=== PATIENT | female | born 1990 | race Caucasian/White ===

== ENCOUNTER 2020-06-22 08:05 | Outpatient (CLI) | payer OTHER, SELFPAY | END 2020-06-22 08:06 | LOC: ANHCOVIDVC 08:06 | DX: Z23 Encounter for immunization (principal) | CPT/HCPCS: 0001A; 91300 ==

== ENCOUNTER 2020-07-12 08:35 | Outpatient (CLI) | payer OTHER, SELFPAY | END 2020-07-12 08:36 | disposition home or self-care (01) | LOC: ANHCOVIDVC 08:35 | DX: Z23 Encounter for immunization (principal) | CPT/HCPCS: 0002A; 91300 ==

== ENCOUNTER 2021-05-09 08:13 | Outpatient (RCR) | payer OTHER, SELFPAY ==
[2021-04-28 11:31] VITALS: PULSE 80
--- NOTE | ~2021-05-09 | US_ITS ---
EXAMINATION: US OB follow up w BPP, US umbilical doppler EXAM DATE: 04/28/2021 10:49 INDICATION: BPP, EFW with growth percentile, WARREN- Gest DM 3rd trimester. TECHNIQUE: Pelvic obstetrical transabdominal sonogram was performed by a technologist. There are mu ltiple grayscale and Doppler images available for interpretation. . No prior study of this for comparison FINDINGS: There is a single fetus identified in vertex presentation with a heart rate of 136 beats pe r minute. The placenta is located in the posterior position. There is no sonographic evidence of ret roplacental hemorrhage identified. The amniotic fluid index is 15.4 centimeters, which is normal. BIOMETRIC DATA: Biparietal diameter (BPD): 8.7 cm --------------> 35 weeks 0 days. Head circumference (HC): 31.7 cm ---------------> 35 weeks 4 days. Abdominal circumference (AC): 30.7 cm ---------> 34 weeks 5 days. Femur length (FL): 6.2 cm ------------------------> 32 weeks 1 day. These measurements are concordant. HC/AC ratio is 1.03 (The 5th -- 95th percentile range is 0.94-1.11. Estimated weight is 2352 g +/- 353 g. This is the 76th percentile when the currently reported clinical gestation age 33 weeks 0 days, clinical estimated date of delivery (LUIS-OPE) 06/16 is used. F etal estimated gestational age based on measurements from this exam is 34 weeks 3 days, with an estim ated date of delivery (LUIS-AUA) 06/06/2021. BIOPHYSICAL PROFILE (performed by the technologist) breathing (30 sec sustained breathing in 30 minutes): 2 out of 2 movement (3 gross body movements in 30 minutes): 2 out of 2 tone (one episode of yejmgmz-[id number]-[id number] limb movement): 2 out of 2 Amniotic fluid pocket (2 cm): 2 out of 2 Total score: 8 out of 8 UMBILICAL ARTERY DOPPLER Systolic/diastolic ratios obtained as follows: Near baby: 3.6, 3.4 Mid aspect: 3.2, 3.1 Near Placenta: 2.4, 2.2 (The 5th -- 95th percentile range is 2.1-3.7). IMPRESSION: 1. Single fetus with heart rate of 136 bpm, 76th percentile using 33 weeks 0 days gestation age. 2. Normal biophysical profile score of 8 out of 8. 3. Normal umbilical artery systolic/diastolic ratios. Reviewed, dictated and finalized at location B. IRATORY CARE ASSISTANT IMPRESSION: 1. Single fetus with heart rate of 136 bpm, 76th percentile using 33 weeks 0 d ays gestation age. 2. Normal biophysical profile score of 8 out of 8. 3. Normal umbilical artery systolic/diastolic ratios.
[2021-05-09 08:43] VITALS: BP 124/69; PULSE 86
== END 2021-07-04 08:13 | disposition home or self-care (01) ==
LOC: ANHOBOP 08:13
PROVIDERS: Visit Provider Obstetrics & Gynecology Gynecology
DX: O24.419 Gestational diabetes mellitus in pregnancy, unspecified control (principal); O36.8330 Maternal care for abnormalities of the fetal heart rate or rhythm, third trimester, not applicable or unspecified; Z3A.33 33 weeks gestation of pregnancy; Z3A.34 34 weeks gestation of pregnancy
CPT/HCPCS: 59025; 76816; 76819; 76820

== ENCOUNTER 2021-06-09 05:27 | Inpatient (IN) | payer OTHER, SELFPAY ==
[2021-06-09] VITALS (53 sets, daily range): BP systolic 102–149; BP diastolic 46–98; PULSE 69–111; RESP 18; TEMP 36.2–36.8; O2SAT 97–100; BMI 40.0
[2021-06-09 06:40] LABS: Basophils Percent Auto 0.4 % (0.2-1.2); Eosinophils Percent Auto 0.4 % (0-4.4); Hemoglobin 12.3 g/dL (12.0-15.0); Immature Granulocyte Absolute 0.07 K/mm3 (0.00-0.031); Lymphocytes Absolute Auto 0.73 K/mm3 (0.9-3.2); Lymphocytes Percent Auto 10.2 % (18.3-44.2); Mean Corpuscular HGB Conc 33.2 g/dl (32-36); Mean Corpuscular Hemoglobin 29.3 pg (26-34); Mean Corpuscular Volume 88.1 fl (80-100); Mean Platelet Volume 9.2 fl (7.4-10.4); Monocytes Absolute Auto 0.4 K/mm3 (0.1-0.6); Monocytes Percent Auto 5.2 % (2.6-8.5); Neutrophils Percent Auto 82.8 % (45.5-73.1); Platelet Count Result 239 k/mm3 (150-375); Red Cell Distribution Width 14.1 % (11.5-14.5); White Blood Count 7.2 K/mm3 (4.5-10.0)
[2021-06-09] MEDS: OXYTOCIN 30 UNITS/NS 500 ML 30 UNITS/500 ML BAG IV CONT (06:51)
[2021-06-09] MEDS: LACTATED RINGERS 1,000 ML 125 ML IV CONT (06:52)
--- NOTE | 2021-06-09 07:26 | WPDOBADMIT ---
Obstetrics - Admit Note Admission Note: record reviewed. No pertinent additions to the history and/or any subsequent changes in the physical findings that are not consistent with the expected course of the were found. Additions to the history and/or subsequent changes in the physical findings follow. None.Here for MIL. Cervix 2-3/70/-2 AROM with clear fluid. FHTs reactive
[2021-06-09 07:32] LABS: Glucose Point of Care 97 mg/dl (65-105)
[2021-06-09] MEDS: ONDANSETRON INJ 4 MG/2 ML VIAL IV PUSH (09:06)
[2021-06-09 11:06] LABS: Rapid Plasma Reagin Non-Reactive (NonReactive)
[2021-06-09 11:19] LABS: Glucose Point of Care 121 mg/dl (65-105)
[2021-06-09] MEDS: FAMOTIDINE 20 MG/2 ML VIAL IV PUSH (11:25)
[2021-06-09] MEDS: CALCIUM CARBONATE (TUMS) 500 MG (200 MG ELEMENTAL) PO (11:26)
[2021-06-09] MEDS: INSULIN ASPART (*BKC) 100 UNITS/ML SUB-Q (11:26)
--- NOTE | 2021-06-09 12:38 | PM.OBPRVD ---
OB - Delivery Note Procedure Delivery date: 06/09/21 Procedure: Events: Gestational Diabetes (GDMA2) Induction method: AROM and Per Pitocin Protocol Delivery monitor: External FHT and Internal Uterine Route of delivery: Laceration Description: Labial (right) Delivery repair: vicryl (4-0 ) Specimen: No Quantitative Blood Loss (ml): 150 Anesthesia type: Local Disposition: Floor Baby Date of : 06/09/21 Weeks of gestation at delivery: 39 gender: Male presentation: vertex position: Right Occiput Anterior Placenta delivery description: Spontaneous Cord Vessel Description: 3 Vessels score one minute: 8 score five minutes: 9
--- NOTE | 2021-06-09 12:39 | PM.OBDSVD ---
DS: Admitting Diagnosis Discharge Date 06/10/21 Admitting Diagnosis MIL at 39 wks GDMA2 DS: Discharge Diagnosis Discharge Diagnosis (1) (normal spontaneous vaginal delivery): Code(s): O80 - Encounter for full-term uncomplicated delivery Status: Acute OB - DS: Summary OB Procedures : NST and Ultrasound OB Procedures Intrapartum: Spontaneous Vag Delivery OB Procedures: : None Peripartum Data Infant Delivery Method: Natural Vaginal Laceration Description: Labial (right) complications: none Status at Discharge Functional status at discharge: independent ambulation Overall status at discharge: patient is progressing back to baseline Time Spent with Patient Time attestation: Total time spent providing and/or coordinating discharge services: DS: Data Data Completed and Pending Labs on day of discharge: Labs from last 24 hours 06/09/21 06/09/21 06/09/21 11:12 06:54 06:29 WBC RBC Hgb Hct MCV MCH MCHC RDW Plt Count MPV Immature Gran % (Auto) Neut % (Auto) Lymph % (Auto) [place] % (Auto) Eos % (Auto) Baso % (Auto) Lymph # (Auto) [place] # (Auto) Eos # (Auto) Baso # (Auto) Abs Immat Gran (auto) Absolute Neuts (auto) Absolute Nucleated RBC Nucleated RBC % POC Capillary Glucose 121 H 97 RPR Blood Type B Positive Antibody Screen Negative 06/09/21 06/09/21 06:29 06:29 WBC 7.2 RBC 4.20 Hgb 12.3 Hct 37.0 MCV 88.1 MCH 29.3 MCHC 33.2 RDW 14.1 Plt Count 239 MPV 9.2 Immature Gran % (Auto) 1.0 H Neut % (Auto) 82.8 H Lymph % (Auto) 10.2 L [place] % (Auto) 5.2 Eos % (Auto) 0.4 Baso % (Auto) 0.4 Lymph # (Auto) 0.73 L [place] # (Auto) 0.4 Eos # (Auto) 0.0 Baso # (Auto) 0.0 Abs Immat Gran (auto) 0.07 H Absolute Neuts (auto) 6.0 Absolute Nucleated RBC 0.0 Nucleated RBC % 0.0 POC Capillary Glucose RPR Non-reactive Blood Type Antibody Screen Discharge Plan Discharge Attending physician on discharge: Katherine Colbert Discharging Clinician: Katherine Colbert Anticipated Discharge Date/Time: 06/10/21 13:56 Patient Disposition: Home, Self-Care Activity: may shower and pelvic rest Diet: regular Discharge Instructions: Education: Mom and Baby Guide Given to: Mother Follow-Up: Call your delivering provider's office for an appointment to be seen in: 6 Weeks Mom and baby should come to the [facility] for the follow-up appointment. Appointment Date/Time: June 11, 2021 at 12:00 pm What to expect at your follow-up visit: Blood Pressure Check Physical Assessment Call [phone] if you are unable to keep your appointment time. BREAST CARE: * Wear a snug supportive bra. * For engorgement discomfort: Breast Feeding: * Apply warm moist washcloths * Express milk as needed to relieve engorgement * Wear loose clothing * For sore nipples: * Identify correct latch-on * Apply warm moist washcloths before and after nursing * Air dry nipples after nursing * May apply Lansinoh cream to nipples EPISIOTOMY/PERINEAL CARE: * Until bleeding stops, use your anabela bottle after urinating * Change your pad frequently throughout the day * You may take sitz baths several times a day (fill your bathtub with warm water and soak for 20 minutes.) Do NOT bathe in the water * No tub baths until seen by your physician - You may shower ACTIVITY: * Rest as much as possible. * Do not exercise or lift anything heavier than your baby (such as laundry or other children.) * Avoid stairs or driving as much as possible. * Do not put anything into the vagina. No douching, tampons, or sexual activity until seen by physician. NOTIFY PHYSICIAN IF YOU HAVE ANY QUESTIONS OR IF ANY OF THE FOLLOWING SYMPTOMS OCCUR: * If your vaginal delivery becomes re
[2021-06-09 12:52] LABS: Glucose Point of Care 149 mg/dl (65-105)
[2021-06-09] MEDS: OXYTOCIN 30 UNITS/NS 500 ML 30 UNITS/500 ML BAG 125 UNITS IV CONT (13:10)
[2021-06-09] MEDS: WITCH HAZEL 40 PADS 1 PAD TOPICAL (13:24)
[2021-06-09] MEDS: IBUPROFEN 600 MG TABLET PO ×2 (13:24→23:35)
[2021-06-09] MEDS: BENZOCAINE 20% AER SPR (*SP) 56 GM CAN 1 SPRAY TOPICAL (13:24)
--- NOTE | 2021-06-09 17:55 | ADMGEN ---
This patient, Ladonna Almanza, was admitted to OB 2nd Floor Room 292-00. Patient/family oriented to hospital policies and general routines including ID bracelet, bed and alarms, visiting hours, pain management, procedures, bathroom and other care routines, personal items, smoking policy, room service/diet, and visiting hours. Information on how to activate the Rapid Response Team has been discussed. Patient/Family are encouraged to report perceived risks to care and to ask questions if they do not understand what they are told or what they should do.
[2021-06-09] MEDS: ACETAMINOPHEN 325 MG TABLET 650 MG PO (23:35)
[2021-06-09] MEDS: LANOLIN (LANSINOH) 7.5 GM CREAM 1 APPLIC TOPICAL (23:38)
[2021-06-10] VITALS: BP 124/83; PULSE 85; RESP 18; TEMP 36.6
[2021-06-10 04:07] VITALS: BP 116/62; PULSE 81; RESP 18; TEMP 36.9
[2021-06-10] MEDS: ACETAMINOPHEN 325 MG TABLET 650 MG PO (05:41)
[2021-06-10] MEDS: IBUPROFEN 600 MG TABLET PO (05:42)
[2021-06-10 06:03] LABS: Hematocrit 34.5 % (37.0-47.0); Hemoglobin 11.3 g/dL (12.0-15.0)
[2021-06-10 08:34] VITALS: BP 104/66; PULSE 83; RESP 15; TEMP 36.1
[2021-06-10 10:00] VITALS: PULSE 83; RESP 15; O2SAT 100
[2021-06-10] MEDS: ESCITALOPRAM OXALATE 10 MG TABLET 20 MG PO (10:04)
[2021-06-10] MEDS: MULTIVIT/MIN/PREN/FOL AC/IRON TABLET 1 TAB PO (10:05)
[2021-06-10] MEDS: DOCUSATE SODIUM 100 MG CAPSULE PO (10:05)
--- NOTE | 2021-06-10 13:55 | P.PNOB_ITS ---
OB - PN: Subj Subjective Date/time seen: 06/10/21 13:55 Patient comments: no complaints and pain well controlled baby status: doing well OB - PN: Obj Data Labs CBC & Chem 7: 06/10/21 03:37 Labs: Laboratory Results - last 24 hr 06/10/21 03:37 Hgb 11.3 L Hct 34.5 L OB - PN A/P Plan day: 1 Plan: routine care, discharge home, follow up 6 weeks and other (Plans condoms for bc) Time Spent With Patient Time: Total time spent is greater than 50% in coordination of care (as do cumented) at patient's floor/unit and/or counseling patient: Exam : Bimanual exam- vagina & uterus: other (Uterus firm, nt @U)
--- NOTE | 2021-06-10 13:55 | PC.NURSE ---
1015 Breast feeding note; mother states baby is latching for feedings. She reports L side is harder for baby, but he will latch; reviewed s/o effective breast feeding, maintained latch with rhythmic sucking. Encouraged mother to do breast massage, and hand expression prior to latching . reviewed how to do both. Reviewed importance of 8-12 feedings a day. Encouraged use of feeding log to monitor feedings, wet/dirty diapers a day. Breast feeding pages in mother baby guide flagged for home reference; mother encouraged to read through the information prior to discharge and have any questions answered. Attempted to get to latch to feed, but once at breast, baby fell asleep. Mother attentive to all information and instruction and voiced understanding. She was encouraged to call office at [place] with any questions of concerns, and if her milk was not in, in the next 2-3 days. She agreed.
[2021-06-11 12:16] VITALS: BP 109/83; PULSE 85; RESP 16; TEMP 37.2
[2021-06-11 12:32] VITALS: BP 109/62; PULSE 84; RESP 16
== END 2021-06-10 14:45 | disposition home or self-care (01) | DRG 807 ==
LOC: ANHLDR 13:47 → ANHOB2 18:11
PROVIDERS: Admitting Provider Obstetrics & Gynecology Gynecology; Visit Provider Obstetrics & Gynecology Gynecology
DX: O24.429 Gestational diabetes mellitus in childbirth, unspecified control (principal); Z37.0 Single live birth; Z3A.39 39 weeks gestation of pregnancy; O70.0 First degree perineal laceration during delivery
CPT/HCPCS: 36415; 82948; 85014; 85018; 85025; 86592; 86850; 86900; 86901; A9270; J1815; J2405; J2590; J7120